=== PATIENT | female | born 1965 | race Caucasian/White ===

== ENCOUNTER 2021-09-26 12:14 | Emergency (ER) | payer OTHER, MEDICARE, SELFPAY ==
[2021-09-26 12:15] VITALS: BP 163/91; PULSE 96; RESP 16; TEMP 36.8; O2SAT 96; BMI 27.4
--- NOTE | 2021-09-26 12:40 | XR_ITS ---
FINAL REPORT CLINICAL HISTORY: pain swelling rt foot FINDINGS: 2 views of the right foot were obtained. There is diffuse osteopenia. There is no acute fracture or dislocation. The joint spaces appear intact. There is soft tissue swelling of the foot. There is a calcification dorsal to the foot. IMPRESSION: Swelling with no acute bony abnormality. Reviewed, Interpreted and Dictated by Kelvin Lopez III, MD Transcribed by Parviz Peña Authenticated by Kelvin Lopez III, MD on 09/26/2021 01:49:50 PM [facility]
--- NOTE | 2021-09-26 12:41 | XR_ITS ---
FINAL REPORT CLINICAL HISTORY: pain, swelling rt ankle FINDINGS: 2 views of the right ankle were obtained. There is diffuse osteopenia. There is no acute fracture or dislocation. The joint spaces appear intact. There is soft tissue swelling of the foot. There is a calcification dorsal to the foot. IMPRESSION: Swelling with no acute bony abnormality. Reviewed, Interpreted and Dictated by Kelvin Lopez III, MD Transcribed by Parviz Peña Authenticated by Kelvin Lopez III, MD on 09/26/2021 01:49:49 PM [facility]
--- NOTE | 2021-09-26 12:42 | XR_ITS ---
FINAL REPORT CLINICAL HISTORY: pain swelling rt leg ankle views also done FINDINGS: Two views of the right tibia-fibula were obtained. There is a comminuted oblique fracture of the proximal tibial metaphysis. There is 7 mm of medial displacement of the main distal fracture fragment. There is a presumed chronic fracture of the distal femoral metaphysis. There is a nondisplaced fracture of the fibular neck. The bones are osteopenic. IMPRESSION: Comminuted fracture of the proximal tibial metaphysis with medial displacement of the main distal fracture fragment. Nondisplaced fracture of the fibular neck. Presumed chronic fracture of the distal femoral metaphysis. Reviewed, Interpreted and Dictated by Kelvin Lopez III, MD Transcribed by Parviz Peña Authenticated by Kelvin Lopez III, MD on 09/26/2021 01:49:53 PM [facility]
[2021-09-26 12:53] VITALS: BP 153/89; O2SAT 98
--- NOTE | 2021-09-26 13:44 | HMH.EDGENADL ---
ED Disposition Clinical Impression: Tibia/fibula fracture Qualifiers: Encounter type: initial encounter Fracture type: closed Laterality: right Qualified Code(s): S82.201A - Unspecified fracture of shaft of right tibia, initial encounter for closed fracture Disposition: Home, Self-Care Condition on Discharge: Good Instructions: DI for Shinbone Fracture, How to Use a Knee Immobilizer Additional Instructions: Tylenol as needed for pain. Bob White as needed for more severe pain. Additional instructions for FRACTURED (BROKEN) BONE: See Dr. Persaud 10/04/2021 at 1:30 PM. Knee immobilizer. Elevate leg to reduce swelling. Return to an emergency department immediately if you have uncontrollable pain, loss of feeling or inability to move your injured extremity. Additional instructions for CONTROLLED SUBSTANCES: You have been prescribed a medication that is a controlled substance. Controlled substances include pain medications known as opiates and sedative nerve medications known as benzodiazepines. Tramadol, fioricet, and gabapentin are also controlled substances. Some common opiates include: Codeine (such as Tylenol #3) Hydrocodone (Vicodin, Lortab, Lorcet, Bob White) Oxycodone (Percocet, Percodan, Oxycodone, Oxy IR) Some common benzodiazepines include: Diazepam (Valium) Lorazepam (Ativan) Alprazolam (Xanax) Clonazepam (Klonopin) Oxazepam (Serax) All of these controlled substances are highly addictive and frequently abused. Misuse can and frequently does lead to addiction as well as overdose and . Medication should be stored in a locked cabinet or other secure storage unit. Do not store the medication in a motor vehicle. Short term supplies, 3 days or less, are prescribed because of the highly addictive nature of the medication. Any of the controlled substance medication NOT taken should be disposed of properly and NOT SAVED. The recommended method of disposing of unused medications is: Place the medicines in a sealable plastic bag. If the medicine is a solid, crush it or add water to dissolve it. Add something undesirable (cat litter, coffee grounds, etc.) Dispose of sealed bag in household trash Do not flush or pour unused medicines down a sink or drain. Controlled substances should not be shared, given away or sold. Because of the addictive nature and frequent abuse, these medications are sometimes stolen. These medications should be kept in a safe place where they cannot be stolen. Do not keep them in your car or purse. Lost or stolen prescriptions for controlled substances WILL NOT BE REFILLED in this emergency department, regardless of whether a police report was filed. Prescriptions: Hydrocod/Acet 5/325 mg [Bob White 5/325mg tablet] 1 tab PO Q6HP PRN #10 tab PRN Reason: Pain Transmission Status: Sent to [facility] Referrals: Provider,Referral, [Primary Care Provider] - - Critical Care Critical Care Time: No Attestation: On 09/26/21, the high probability of a clinically significant, sudden or life threatening deterioration of the following system(s) required my full and direct attention, intervention and personal management. The time I documented below is in addition to time spent performing reported procedures but includes the following listed in this critical care notation. Medical Decision Making - Kelvin Inquiry Pt receiving controlled substance: Yes Kelvin was queried for this patient: Yes Risks and benefits of using a controlled substance: were discussed with pt by me Vital Signs: 09/26/21 12:15 09/26/21 12:53 Temperature 98.2 F Temperature Source Oral Pulse Rate [Radial] 96 H Respiratory Rate 16 Blood Pressure 153/89 H Blood Pressure [Right Arm] 163/91 H Blood Pressure Mean [Right Arm] 115 Blood Pressure Position [Right Arm] Sitting 02 Sat by Pulse Oximetry 96 98 Oxygen Delivery Method Room Air Room Air Orders (Tests/Meds): ORDERS Category
--- NOTE | 2021-09-26 13:46 | PC.NURSE ---
MESSAGE LEFT FOR ORTHO TO CALL
--- NOTE | 2021-09-26 13:52 | XR_ITS ---
FINAL REPORT CLINICAL HISTORY: fracture tib-fib FINDINGS: RIGHT KNEE Three views demonstrate a chronic fracture of the distal femur with posterior displacement. 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 There is a comminuted fracture of the proximal tibial metaphysis with some impaction and medial displacement of the distal fracture fragment. There is also a nondisplaced fracture of the proximal fibular metaphysis. IMPRESSION: Fractures as above. Reviewed, Interpreted and Dictated by Kelvin Lopez III, MD Transcribed by Jolanta Anderson Authenticated by Kelvin Lopez III, MD on 09/26/2021 03:44:01 PM [facility]
--- NOTE | 2021-09-26 14:33 | PC.NURSE ---
DR. claire's office called with a follow up appt Saturday at 1:30 pm
[2021-09-26 15:13] VITALS: BP 140/88; PULSE 94; RESP 16; TEMP 36.8; O2SAT 98
== END 2021-09-26 15:14 | disposition home or self-care (01) ==
PROVIDERS: Emergency Provider Emergency Medicine
DX: S82.201A Unspecified fracture of shaft of right tibia, initial encounter for closed fracture (principal); W01.0XXA Fall on same level from slipping, tripping and stumbling without subsequent striking against object, initial encounter; Y92.019 Unspecified place in single-family (private) house as the place of occurrence of the external cause; Z87.820 Personal history of traumatic brain injury
CPT/HCPCS: 29505; 73562; 73590; 73600; 73620; 99282

== ENCOUNTER → 2021-10-12 08:37 | Outpatient (CLI) | payer OTHER, MEDICARE, SELFPAY ==
--- NOTE | 2021-10-12 08:43 | XR_ITS ---
FINAL REPORT CLINICAL HISTORY: RT tib/fib fx/ femur fx COMPARISON: September 26, 2021 FINDINGS: 3 views of the right knee were obtained. There is an oblique posteriorly displaced fracture of the distal femoral metaphysis. This is unchanged and appears subacute or chronic. There is a transverse mildly impacted fracture of the proximal tibial metaphysis. There is a vertical component to the tibial fracture with 9 mm of medial displacement. There is a transverse mildly impacted fracture of the proximal fibula. These fractures may be subacute and are stable. IMPRESSION: Stable fractures of the proximal tibia and fibula may be subacute. Subacute or chronic stable fracture of the distal femoral metaphysis. Reviewed, Interpreted and Dictated by Owen Peacock MD Transcribed by Parviz Peña Authenticated by Owen Peacock MD on 10/12/2021 12:51:56 PM [facility]
== END ==
PROVIDERS: Visit Provider Orthopaedic Surgery
DX: S82.201A Unspecified fracture of shaft of right tibia, initial encounter for closed fracture (principal); S82.401A Unspecified fracture of shaft of right fibula, initial encounter for closed fracture
CPT/HCPCS: 73562

== ENCOUNTER → 2021-11-07 10:18 | Outpatient (CLI) | payer OTHER, MEDICARE, SELFPAY ==
--- NOTE | 2021-11-07 10:24 | XR_ITS ---
FINAL REPORT CLINICAL HISTORY: tib/fib fracture COMPARISON: October 12, 2021 FINDINGS: RIGHT KNEE 3 views of the left knee were obtained. There is diffuse osteopenia. There is redemonstration of significant fracture deformity of the distal femoral metadiaphysis, the proximal tibial metaphysis and the proximal fibular head. Allowing for differences in positioning, the fracture fragments are unchanged in position. There may be some increased callus formation along the lateral margin of the proximal right tibial fracture. Soft tissues are unremarkable. IMPRESSION: Healing, moderately displaced fractures of the distal femur and proximal tibia. Reviewed, Interpreted and Dictated by Owen Peacock MD Transcribed by Rebeca Cohen Authenticated by Owen Peacock MD on 11/07/2021 01:54:06 PM [facility]
== END ==
PROVIDERS: Visit Provider Orthopaedic Surgery
DX: S82.201A Unspecified fracture of shaft of right tibia, initial encounter for closed fracture (principal); S82.401A Unspecified fracture of shaft of right fibula, initial encounter for closed fracture
CPT/HCPCS: 73562

== ENCOUNTER 2022-04-17 13:47 | Emergency (ER) | payer OTHER, MEDICARE, SELFPAY ==
[2022-04-17] VITALS (10 sets, daily range): BP systolic 128–144; BP diastolic 73–93; PULSE 102–133; RESP 12–15; TEMP 37.1; O2SAT 93–99; BMI 25.0
--- NOTE | 2022-04-17 13:38 | ECG_ITS ---
APPROVED REPORT Exam: Resting ECG HR:128 bpm ECG Measurements Heart Rate 128 AXES VT 160 P 65 QRSd 72 QRS 52 QT 334 T 73 QTc 410 Conclusion SINUS TACHYCARDIA Late R wave progression ABNORMAL ECG UNCONFIRMED REPORT Electronically signed by : Osbaldo Vail MD 04/17/2022 16:45:55
--- NOTE | 2022-04-17 13:40 | PC.NURSE ---
Seizure pads placed on BL bed rails.
--- NOTE | 2022-04-17 13:44 | PC.NURSE ---
VIKI TOVAR at for patient eval
--- NOTE | 2022-04-17 13:49 | HMH.EDGENADL ---
Discharge Plan Disposition Patient Disposition: Home, Self-Care Condition: Good Prescriptions Prescriptions: No Action topiramate 100 mg tablet 100 mg PO DAILY lamotrigine 100 mg tablet 100 mg PO DAILY baclofen 10 mg tablet 10 mg PO DAILY hydrocodone-acetaminophen 1 TAB tablet 1 tab PO Q6HP PRN (Reason: Pain) Qty: 10 0RF Activity Restrictions/Add. Instructions Additional Instructions/Restrictions: Increase lamotrigine dose to 100 mg twice a day. Follow-up with Dr. Franco and Perico Corbett in the office, call tomorrow make an appointment. Nasal Versed for any recurrent seizures and return to the emergency department if seizure recurs. Clinical Impressions Clinical Impression: Epilepsy with status epilepticus Instructions Patient Instructions: DI for Seizure Disorder -- Adult, DI for Seizure (Not Epilepsy/Seizure Disorder), DI for Seizure Disorder -- Child Discharge ED Provider: Keith Rousseau General Adult HPI General Chief complaint: Seizure Stated complaint: Seizure Time Seen by Provider: 04/17/22 13:47 History of Present Illness HPI narrative: History obtained from EMS personnel. Patient at this time is unable to give any history. 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 She has been having seizures off and on all morning. She had a couple of seizures during transport. She was treated with Versed 5 mg intravenously with resolution of seizures. She has not been responsive since EMS picked her up. Son reported to EMS that she frequently has infection as a cause for her breakthrough seizures and status epilepticus. Related Data Home Medications Medication Instructions Recorded Confirmed baclofen 10 mg tablet 10 mg PO DAILY 10/12/21 10/12/21 lamotrigine 100 mg tablet 100 mg PO DAILY 10/12/21 10/12/21 topiramate 100 mg tablet 100 mg PO DAILY 10/12/21 10/12/21 Previous Rx's Medication Instructions Recorded hydrocodone 5 mg-acetaminophen 325 1 tab PO Q6HP PRN Pain #10 tabs 09/26/21 mg tablet Allergies Allergy/AdvReac Type Severity Reaction Status Date / Time No Known Allergies Allergy Verified 10/12/21 09:34 PFSH PFSH Social History Smoking Status: Unknown if ever smoked alcohol intake: never current occupational status: disabled household members: family housing: house ROS Obtained: Yes unobtainable due to mental status Physical Exam General General appearance: other Comment: Laying with eyes closed. No respiratory distress. Head Head exam: atraumatic and normocephalic Eye Eye exam: Present PERRL (Pupils 3 mm and reactive) ENT ENT exam: Present mucous membranes moist Neck Neck exam: Present normal inspection and trachea midline; Absent meningismus Chest Chest inspection: Present normal inspection and symmetric chest wall rise Respiratory Respiratory exam: Present normal lung sounds bilaterally; Absent respiratory distress Cardiovascular Cardiovascular exam: Present tachycardia and normal heart sounds Abdominal Exam Abdominal exam: Present soft; Absent distention or guarding Extremities Exam Extremities exam: Present other (Contractures of right upper and lower extremities) Neurological Exam Neurological exam: Present other Expanded Neurological Exam Comment: Initially arrives postictal and unresponsive. Pupils equal equal and reactive at 3 mm. Skin Skin exam: Present warm and dry Medical Decision Making Kelvin Inquiry Pt receiving controlled substance: No Kelvin was queried for this patient: Yes Vital Signs: 04/17/22 13:47 04/17/22 13:55 04/17/22 14:00 Temperature 98.8 F Temperature Source Oral Pulse Rate 124 H 133 H Pulse Rate [Left Radial] 132 H Respiratory Rate 15 Blood Pressure 142/87 H 144/86 H Blood Pressure [Right Arm] 144/86 H Blood Pressure Mean 111 103
--- NOTE | 2022-04-17 13:53 | CT_ITS ---
FINAL REPORT CLINICAL HISTORY: status epilipticus FINDINGS: Axial images of the head were obtained without contrast. Coronal reformatted images were also obtained.This study was performed with techniques to keep radiation doses as low as reasonably achievable (ALARA). Individualized dose reduction techniques using automated exposure control or adjustment of mA and/or kV according to the patient's size were employed. There is bilateral frontal and left temporal encephalomalacia. There are bilateral parenchymal calcifications and along the right lateral ventricle that are likely dystrophic. There is no evidence of intracranial hemorrhage or mass. There is mild ventriculomegaly. There is no evidence of shift of the midline structures. No abnormal extra axial fluid collection is identified. There is a retention cyst or polyp in the right maxillary sinus. No skull abnormality is seen on the bone window images. IMPRESSION: No acute intracranial abnormality. Bilateral frontal and left temporal areas of encephalomalacia. Reviewed, Interpreted and Dictated by Kelvin Lopez III, MD Transcribed by Parviz Peña Authenticated and [facility]
--- NOTE | 2022-04-17 13:53 | XR_ITS ---
FINAL REPORT CLINICAL HISTORY: seizures FINDINGS: The heart size is normal. The mediastinum is normal. There are mild bibasilar opacities. There are no pleural effusions. There is no pneumothorax. There is no osseous abnormality. IMPRESSION: Mild bibasilar opacities favor atelectasis over pneumonia. Reviewed, Interpreted and Dictated by Kelvin Lopez III, MD Transcribed by Parviz Peña Authenticated and [facility]
[2022-04-17 14:08] LABS: Basophils # 0.1 K/mm3 (0-0.2); Basophils % 0.4 % (0.1-2.0); Eosinophils # 0.1 K/mm3 (0.0-0.4); Eosinophils % 0.5 % (0.1-12.0); Hematocrit 47.8 % (37.0-47.0); Hemoglobin 14.6 g/dL (12.2-16.2); Lymphocytes # 0.9 K/mm3 (0.7-4.5); Lymphocytes % 5.6 % (10-50); Mean Corpuscular HGB Conc 30.4 g/dL (31.8-35.4); Mean Corpuscular Hemoglobin 28.8 pg (27.0-31.2); Mean Corpuscular Volume 94.5 fl (81-99); Mean Platelet Volume 10.3 fl (7.4-10.4); Monocytes # 0.5 K/mm3 (0.1-1.0); Neutrophils # 14.9 K/mm3 (1.8-7.8); Neutrophils % 90.5 % (37.0-80.0); Platelet Count 243 K/mm3 (142-424); Red Blood Count 5.06 M/mm3 (4.20-5.40); Red Cell Distribution Width 14.3 % (11.5-17.5); White Blood Count 16.4 K/mm3 (4.8-10.8)
[2022-04-17 14:09] LABS: Chloride 112 mmol/L (98-107); Potassium 4.3 mmoL/L (3.5-5.1); Sodium 142 mmol/L (136-145)
--- NOTE | 2022-04-17 14:09 | PC.NURSE ---
Masha RT is aware of ABG order
[2022-04-17 14:11] LABS: Blood Urea Nitrogen 28 mg/dl (7-17); Creatine Kinase 64 U/L (30-135); Creatinine Clearance Estimated 114 mL/min (50-200); Estimated Glomerular Filt Rate 104 ml/min (>60); GFR (African American) 126 ML/MIN (>60)
[2022-04-17 14:12] LABS: Alanine Aminotransferase 44 U/L (12-78); Albumin Level 4.2 g/dl (3.5-5.0); Albumin/Globulin Ratio 1.2 (1.1-1.8); Alkaline Phosphatase 133 U/L (38-126); Anion Gap 15.3 mEq/L (5-15); Aspartate Amino Transferase 48 U/L (14-36); Calcium 9.3 mg/dl (8.4-10.2); Carbon Dioxide 19 mmol/L (22.0-30.0); Globulin 3.5 g/dL (1.3-3.2); Glucose 118 mg/dl (74-100); Total Protein,Serum 7.7 g/dl (6.3-8.2)
--- NOTE | 2022-04-17 14:14 | PC.NURSE ---
rt at bedside for ABG
[2022-04-17 14:18] LABS: Coronavirus 19, PCR Not Detected (NotDetected); Influenza A, PCR Not Detected (NotDetected); Influenza B, PCR Not Detected (NotDetected); Microscopic,Cath URINE MICROSCOPIC (MICROSCOPIC)
[2022-04-17 14:21] LABS: CKMB Relative Index 1.4 U/L (0-4.0); Creatine Kinase MB 0.9 ng/ml (0.0-2.03)
[2022-04-17 14:23] LABS: ABG Base Excess -3.3 mmol/L (-2.4-2.3); ABG HCO3 21.7 mmhg (22.0-26.0); ABG Oxygen Saturation 97 % (90-100); ABG PCO2 36.7 mmhg (35.0-45.0); ABG PH 7.39 mmol/L (7.35-7.45); ABG PO2 86.1 mmhg (80-100); ABG TCO2 22.8 mmhg (23-27)
[2022-04-17 14:23] LABS: Appearance,Urine/Cath CLEAR (Clear); Bilirubin,Cath Negative (Negative); Blood, Urine/Cath Negative (Negative); Color,Urine/Cath YELLOW (Yellow); Glucose,Urine/Cath (UA) Negative (Negative); Ketones,Urine/Cath Negative (Negative); Lactic Acid 4.5 mmol/L (0.7-2.1); Leukocyte Esterase,Cath Negative (Negative); Nitrate,Cath Negative (Negative); PH,Urine/Cath 5.5 (5.0-8.5); Protein,Urine/Cath Negative (Negative); Specific Gravity, Urine/Cath >= 1.030 (1.005-1.030); Urobilinogen,Cath 0.2 EU/dl (0.2)
--- NOTE | 2022-04-17 14:23 | PC.NURSE ---
1423 CRITICAL LAB RECEIVED FROM [facility] IN LAB. LACTIC 4.5. PT NAME AND R/V. DR JHAVERI NOTIFIED. NO NEW ORDERS
[2022-04-17 14:24] LABS: Bilirubin,Total 0.1 mg/dl (0.2-1.3)
[2022-04-17 14:25] LABS: Allen's Test acceptable; Oxygen room air %; Source Left Radial
[2022-04-17 14:25] LABS: Troponin I < 0.01 ng/ml (0.00-0.034)
[2022-04-17 14:26] LABS: MANUAL DIFFERENTIAL MANUAL DIFFERENTIAL (MANUAL DIFF)
[2022-04-17 14:34] LABS: Bacteria,Urine/Cath 2+ /lpf; WBC,Urine/Cath Occasional #/hpf (0-3)
--- NOTE | 2022-04-17 14:36 | PC.NURSE ---
Pt continues to pull nasal cannula out of her nose
--- NOTE | 2022-04-17 14:37 | PC.NURSE ---
Family at bedside
[2022-04-17 14:47] LABS: Lymphocytes % 6 % (10-50); Neutrophils % 94 % (42-76); Platelet Estimate Normal; RBC Morphology Normal; Total Cells Counted 100
--- NOTE | 2022-04-17 15:27 | PC.NURSE ---
MD at bedside updating family on POC.
--- NOTE | 2022-04-17 15:32 | PC.NURSE ---
VIKI TOVAR speaking with Dr. Melgoza at this time
--- NOTE | 2022-04-17 15:43 | PC.NURSE ---
Contacting patients Neurologist, Dr. Cornel Franco with [facility].
--- NOTE | 2022-04-17 15:48 | PC.NURSE ---
Awaiting a call back from Perico Humphries APRN who works with Dr. Franco at [facility] to speak with our ER MD
--- NOTE | 2022-04-17 16:39 | PC.NURSE ---
Called [facility] to have Dr. Cornel Franco paged. We never heard back from his Nurse practitioner in their office and now office is closed.
[2022-04-17 17:58] LABS: Reflex Lactic Add Lactic Reflex
[2022-04-23 17:08] LABS: Lamotrigine (Lamictal) 3.4 ug/mL (2.0-20.0)
== END 2022-04-17 17:40 | disposition home or self-care (01) ==
PROVIDERS: Emergency Provider Emergency Medicine
DX: G40.801 Other epilepsy, not intractable, with status epilepticus (principal)
CPT/HCPCS: 70450; 71045; 80053; 80168; 81001; 82550; 82553; 82803; 83605; 84484; 85007; 85025; 87040; 87086; 87088; 93005; 99285; C9803; U0003; U0005